=== PATIENT | female | born 2000 | race African-American/Black ===

== ENCOUNTER 2022-12-06 11:28 | Outpatient (CLI) | payer OTHER ==
[2022-12-06 13:25] LABS: ALT 12 U/L (4-34); AST 21 U/L (14-36); African American GFR (CKD) >90 (>60 ml/min/1.73 sqM); Basophils % (A) 0 %; Blood Urea Nitrogen 4 mg/dL (7-17); Eosinophils % (A) 0 %; HCT 30.5 % (34.0-46.0); HGB 10.8 gm/dL (11.4-16.0); LDH 171 U/L (120-246); Lymphocytes # (A) 1.4 k/uL (1.0-4.8); Lymphocytes % (A) 28 %; MCH 32.3 pg (25.0-35.0); MCHC 35.4 g/dL (31.0-37.0); MCV 91.2 fL (80.0-100.0); Mean Platelet Volume 11.6; Monocytes # (A) 0.4 k/uL (0-1.0); Monocytes % (A) 8 %; Neutrophils % (A) 61 %; Non-African American GFR(CKD) >90 (>60 ml/min/1.73 sqM); Platelet Count 168 k/uL (150-450); RBC 3.35 m/uL (3.80-5.40); RDW 12.6 % (11.5-15.5); Uric Acid 4.9 mg/dL (3.7-7.4); WBC 4.9 k/uL (3.8-10.6)
[2022-12-06 13:45] LABS: Appearance,Urine Cloudy (Clear); Bilirubin,Urine Negative (Negative); Blood,Urine Negative (Negative); Color,Urine Yellow; Glucose,Urine (UA) Negative (Negative); Ketones,Urine Negative (Negative); Leukocyte Esterase,Urine Negative (Negative); Mucus,Urine Rare /hpf; Nitrite,Urine Negative (Negative); PH, Urine 6.5 (5.0-8.0); Protein,Urine Trace (Negative); RBC,Urine 1 /hpf (0-5); Specific Gravity,Urine 1.017 (1.001-1.035); Squamous Epithelial Cell,Urine 10 /hpf (0-4); Urobilinogen,Urine <2.0 mg/dL (<2.0); WBC,Urine 1 /hpf (0-5)
[2022-12-06 13:54] LABS: Large Platelets Present; RBC Morphology Normal
[2022-12-06 13:56] LABS: Creatinine,Urine Random 180.2 mg/dL
[2022-12-06 14:53] VITALS: BP 129/86; PULSE 76; RESP 16; TEMP 98.4
== END 2022-12-06 14:20 | disposition home or self-care (01) ==
LOC: FBPOP 11:28
PROVIDERS: ATTEND Obstetrics & Gynecology
DX: O13.3 Gestational [pregnancy-induced] hypertension without significant proteinuria, third trimester (principal); Z3A.36 36 weeks gestation of pregnancy; Z79.899 Other long term (current) drug therapy
CPT/HCPCS: 59025; 81001; 82565; 82570; 83615; 84156; 84450; 84460; 84520; 84550; 85025

== ENCOUNTER 2022-12-11 17:00 | Inpatient (IN) | payer OTHER ==
[2022-12-12] MEDS ORDERED: CARBOPROST TROMETHAMINE 250 MCG/ML 1 ML AMP IM PRN (06:27)
[2022-12-12] MEDS ORDERED: LIDOCAINE 0.5% (PF) 5 MG/ML (50 ML SDV) SQ PRN (06:27)
[2022-12-12] MEDS ORDERED: METHYLERGONOVINE 0.2 MG/ML 1 ML AMP IM PRN (06:27)
[2022-12-12] MEDS ORDERED: miSOPROStoL 200 MCG TAB PO PRN (06:27)
[2022-12-12] MEDS ORDERED: TERBUTALINE 1 MG/ML VIAL SQ PRN (06:27)
[2022-12-12] MEDS ORDERED: OXYTOCIN 10 UNIT/ML 1 ML VIAL IM PRN ×2 (06:27→21:41)
[2022-12-12] MEDS ORDERED: TRANEXAMIC 1,000 MG/100ML-NACL 1,000 MG in EMPTY BAG 1 BAG IV PRN (06:27)
[2022-12-12 06:41] LABS: Basophils % (A) 0 %; Eosinophils % (A) 1 %; HCT 33.5 % (34.0-46.0); HGB 11.6 gm/dL (11.4-16.0); Lymphocytes # (A) 1.5 k/uL (1.0-4.8); Lymphocytes % (A) 32 %; MCH 31.6 pg (25.0-35.0); MCHC 34.5 g/dL (31.0-37.0); MCV 91.5 fL (80.0-100.0); Mean Platelet Volume 12.1; Monocytes # (A) 0.3 k/uL (0-1.0); Monocytes % (A) 7 %; Neutrophils # (A) 2.7 k/uL (1.3-7.7); Neutrophils % (A) 58 %; Platelet Count 176 k/uL (150-450); RBC 3.67 m/uL (3.80-5.40); RDW 12.6 % (11.5-15.5); WBC 4.7 k/uL (3.8-10.6)
[2022-12-12] MEDS: LACTATED RINGERS 1,000 ML IV SCH ×3 (07:14→18:12)
[2022-12-12] MEDS ORDERED: OXYTOCIN 30 UNITS/500 ML NS 30 UNIT in SALINE 1 500ML.BAG IV SCH (07:15)
--- NOTE | 2022-12-12 07:20 | P.HPOB ---
History of Present Illness H&P Date: 12/12/22 Chief Complaint: Medical induction of labor for gestational HTN Ms. Vasquez is a 22 year old at 37 weeks and 3 days with EDC of 12/30/2022 (by LMP consistent with 7 week US) who presents to labor and deliver for medical induction of labor for gestational hypertension. Pre-eclampsia labs were within normal limits on 12/06. The has also been complicated by the finding of a small hydrocele on ultrasound. The fetus measured in the 70%ile at 36 week growth ultrasound. work-up: blood type O positive, antibody negative, rubella immune, VDRL non-reactive, HBsAg negative, HIV negative, HCV Ab negative, gonorrhea negative, chlamydia negative, 1 hour GTT within normal limits, GBS negative. Past Medical History: None Past Surgical History: None Past Medical History Past Medical History: No Reported History History of Any Multi-Drug Resistant Organisms: None Reported Past Surgical History: No Surgical Hx Reported Past Anesthesia/Blood Transfusion Reactions: No Reported Reaction Past Psychological History: No Psychological Hx Reported Smoking Status: Never smoker Past Alcohol Use History: None Reported Past Drug Use History: None Reported Medications and Allergies Home Medications Medication Instructions Recorded Confirmed Type Aspirin 81 mg PO DAILY 12/06/22 12/12/22 History Vit No.179/Iron/Folic 1 tab PO DAILY 12/06/22 12/12/22 History [ Tablet] Allergies Allergy/AdvReac Type Severity Reaction Status Date / Time No Known Allergies Allergy Verified 12/12/22 06:25 Exam Vital Signs Temp Pulse Resp BP Pulse Ox 12/12/22 06:25 97.6 F 94 16 136/95 100 Intake and Output 12/11/22 12/12/22 12/12/22 22:59 06:59 14:59 Other: Weight 74.843 kg This physical exam is performed. This is a healthy-appearing in no apparent distress. Breathing is non-labored. Abdomen is gravid and non-tender. Cervical exam is fingertip, 0% effaced, and -2 station. Cooks catheter is placed with a speculum, each balloon is filled with 60cc of sterile saline. Extremities are non-tender and non-edematous. heart tones are reactive and reassuring on NST. Tocometer is graphing rare contractions. Results Result Diagrams: 12/12/22 06:30 Abnormal Lab Results - Last 24 Hours (Table) 12/12/22 Range/Units 06:30 RBC 3.67 L (3.80-5.40) m/uL Hct 33.5 L (34.0-46.0) % Assessment and Plan Assessment: 22 year old at 37 weeks and 3 days presenting for medical induction of la bor for gestational hypertension Plan: Admit, NPO, mIVF, low-dose pitocin with cooks catheter x10-12 hours. IV nubain or nitrous oxide prn. Continuous external monitoring and tocometer. Time with Patient: Less than 30 (15 minutes)
[2022-12-12] MEDS: NALBUPHINE 10 MG/ML (10 ML MDV) IV PRN ×2 (10:12→16:01)
[2022-12-12] MEDS ORDERED: SODIUM CHLORIDE 0.9% 250 ML BAG ONE (18:10)
[2022-12-12] MEDS ORDERED: ROPIVACAINE 5 MG/ML 30 ML VIAL ONE (18:10)
[2022-12-12] MEDS ORDERED: fentaNYL (PF) 50 MCG/ML 5 ML AMP ONE (18:10)
[2022-12-12] MEDS ORDERED: LACTATED RINGERS 1,000 ML IV ONE (21:41)
[2022-12-12] MEDS ORDERED: CITRIC ACID-SODIUM CITRATE 15 ML CUP PO ONE (22:00)
[2022-12-12] MEDS ORDERED: AZITHROMYCIN 500 MG in SODIUM CHLORIDE 0.9% 250 ML IVPB STA (22:06)
[2022-12-12] MEDS ORDERED: ONDANSETRON 4 MG/2 ML VIAL ONE (22:57)
[2022-12-12] MEDS ORDERED: MORPHINE SULFATE (PF) 0.3 MG/0.3 ML SYR ONE (22:57)
[2022-12-12] MEDS ORDERED: OXYTOCIN 30 UNITS/500 ML NS BAG IV ONE (22:57)
[2022-12-12] MEDS ORDERED: KETOROLAC 15 MG/ML 1 ML VIAL ONE (22:57)
[2022-12-12] MEDS ORDERED: HYDROmorphone 0.5 MG/0.5 ML SYRINGE IVP PRN (23:18)
[2022-12-12] MEDS ORDERED: ONDANSETRON 4 MG/2 ML VIAL IVP PRN (23:18)
[2022-12-12] MEDS ORDERED: NALOXONE 0.4 MG/ML 1 ML VIAL IV PRN (23:18)
[2022-12-12] MEDS ORDERED: diphenhydrAMINE 50 MG/ML 1 ML VIAL IVP PRN (23:18)
--- NOTE | 2022-12-13 | P.OP ---
Date of Procedure: 12/12/22 Preoperative Diagnosis: 1. Term IUP at 37 weeks and 3 days 2. Gestational Hypertension 3. Persistent Category II Heart Tones Remote From Delivery Postoperative Diagnosis: Same Procedure(s) Performed: Primary Lower Transverse Section Implants: None Anesthesia: epidural Surgeon: Krys Kenny Master [employer]ach[employer]ist #1: Kevon Mena Estimated Blood Loss (ml): 400 IV fluids (ml): 600 Urine output (ml): 150 Pathology: none sent Condition: stable Disposition: floor Indications for Procedure: This is a 22 year old at 37 weeks and 3 days who was being medically ind uced for recently diagnosed gestational hypertension. Category II FHT managed following algorithm including initiation of corrective measures of IV fluids and position changes. With the persistent presence of repetitive lates, a patient- centered huddle was held and the need for an expedited deliver was discussed with the patient. It is our clinical recommendation to proceed with the delivery and after questions were answered to the patient agrees to proceed with the recommended plan. The risks, benefits, and alternatives to section were discussed with the patient including risk of bleeding, infection, damage to surrounding structures including bladder/bowels/ureters, and post-operative VTE. The patient understands these risks and desires to proceed with section. Operative Findings: Colorless amniotic fluid. Viable male infant in left occiput transverse presentation. Apgars were 9/9 at 1 and 5 minutes respectively. Weight was 7 pounds and 7 ounces (3370 grams). Normal uterus, bilateral fallopian tubes, and ovaries. Description of Procedure: The patient was taken to the operating room where spinal anesthesia was found to be adequate. 2 grams of Ancef and 500mg of Azithromycin were given for infection prophylaxis. Vaginal prep was performed prior to the surgery. She was prepared and draped in the dorsal supine position with a leftward tilt. A Pfannenstiel skin incision was made with the scalpel. The incision was carried down to the fascia with a bovie. The fascia was incised and extended laterally with Headley scissors. The superior aspect of the fascia was grasped with Titi clamps. The underlying rectus muscle was dissected off sharply with Headley scissors. In a similar fashion, the inferior aspect of the fascia was elevated with Titi clamps and the rectus muscle and pyramidalis were dissected off. Excellent hemostasis was achieved with the bovie. The rectus muscle was in the midline down to the level of the pubic symphysis. Pre-peritoneal fatty tissue was bluntly dissected to expose the peritoneum. The peritoneum was found to be free of adherent bowel and entered sharply with Headley scissors. The peritoneal incision was extended superiorly and inferiorly to the bladder reflection with good visualization of the bladder. The bladder blade was inserted and vesicouterine peritoneum was identified. Intraabdominal survey revealed scant, clear peritoneal fluid and the thinned-out lower uterine segment.The bladder blade was repositioned to keep the bladder out of the operative field. The lower uterine segment was incised with a scalpel. The amniotic sac was ruptured with an Allis clamp and clear fluid was noted. The uterine incision was extended bluntly with lateral and upward traction. The fetus was in left occiput transverse position. The head was elevated out of the pelvis with special attention paid to avoid using the uterine incision as a fulcrum. Gentle fundal pressure was applied once the head was brought into the incision. The infant was delivered with no difficulty. The mouth and nose were suctioned with a bulb. The cord was clamped and cut. was noted to be spontaneously crying. The was handed off to the hunter. IV oxytocin was initiated to facilitate uterine contractions. The placenta was delivered intact with manual massage of uterine fundus. The uterus was then exteriorized and the inside of the uterus was gently wiped with a lap sponge to assure complete removal of placental membranes. The uterine incision was closed with a 0-Polysorb suture in a running locked fashion. A second imbricating layer of 0-Polysorb was placed along the incision. A stable 4 centimeter hematoma at the left aspect of the hysterotomy is noted. The ovaries and tubes were found to be normal. The uterus, tubes, and ovaries were then gently returned to the abdominal cavity. The blood clots and fluid were wiped out of the abdomen and pelvis with moist laparotomy sponges. The pelvis was copiously suction irrigated.The uterine incision was reinspected and excellent hemostasis was noted. The fascial layer was closed with a 0-Vicryl suture. The subcutaneous tissue was reapproximated with 2-0 Plain Gut. The skin was closed with 4-0 Monocryl in a subcuticular fashion. The patient tolerated the procedure well. All the counts were correct times two. The patient was taken to the recovery room in a stable condition.
[2022-12-13] MEDS ORDERED: NALOXONE 0.4 MG/ML 1 ML VIAL IV PRN (00:01)
[2022-12-13] MEDS ORDERED: ZOLPIDEM 5 MG TAB PO PRN (00:01)
[2022-12-13] MEDS ORDERED: MORPHINE PCA 50 MG/50 ML BAG IV PRN (00:01)
[2022-12-13] MEDS ORDERED: METOCLOPRAMIDE 5 MG/ML 2 ML VIAL IVP PRN (00:01)
[2022-12-13] MEDS ORDERED: diphenhydrAMINE 50 MG CAP PO PRN (00:01)
[2022-12-13] MEDS ORDERED: diphenhydrAMINE 50 MG/ML 1 ML VIAL IVP PRN ×2 (00:01)
[2022-12-13] MEDS ORDERED: diphenhydrAMINE 25 MG CAP PO PRN (00:01)
[2022-12-13] MEDS ORDERED: ONDANSETRON 4 MG/2 ML VIAL IVP PRN (00:01)
[2022-12-13] MEDS ORDERED: hydrALAZINE HCL 20 MG/ML 1 ML VIAL IVP STA (00:13)
[2022-12-13] MEDS: ACETAMINOPHEN TAB 500 MG TAB PO SCH ×3 (04:39→18:22)
--- NOTE | 2022-12-13 06:50 | P.PN ---
Progress Note - Text Progress Note Date: 12/13/22 Postoperative day 1 status post section under epidural anesthesia,,and epidural morphine given for postoperative analgesia, patient doing well, there is no anesthesia related complications, Patient had no headache, vital signs stable , Assessment and plan= postop day 1 status post , doing well there is no anesthesia related complication.
--- NOTE | 2022-12-13 08:39 | P.PNOBGPC ---
Subjective - Subjective Principal diagnosis: s/p primary section Interval history: The patient is doing well this morning and had no acute events overnight. She has no complaints this morning. She reports minimal lochia, passing flatus, and eating/drinking without nausea or vomiting. Cottrell catheter will be removed today. Goals for today are ambulation. She is her without difficulty. She denies chest pain, shortness of breathing, fevers, or chills overnight. She denies pain or swelling in the legs. Patient denies headaches, visual disturbances, or RUQ pain. Patient reports: Reports appetite normal, Reports voiding normally, Reports pain well controlled, Reports ambulating normally : doing well, nursing well Objective - Vital Signs Latest vital signs: Vital Signs Temp Pulse Resp BP Pulse Ox 12/13/22 06:00 16 12/13/22 04:30 98.4 F 98 16 124/84 98 12/13/22 04:00 16 12/13/22 02:19 16 12/13/22 01:53 98.2 F 89 16 141/87 98 12/13/22 01:23 91 16 158/83 100 12/13/22 00:53 99 16 148/89 100 12/13/22 00:38 93 16 150/94 100 12/13/22 00:36 93 150/94 12/13/22 00:31 89 16 140/87 100 12/13/22 00:23 81 16 173/85 100 12/13/22 00:19 16 100 12/13/22 00:08 82 16 167/82 100 12/12/22 23:53 98.0 F 85 16 160/96 100 12/12/22 23:19 98.0 F 85 17 160/96 100 Intake and Output 12/12/22 12/13/22 12/13/22 22:59 06:59 14:59 Intake Total 3000 633.033 Output Total 300 870 Balance 2700 -236.967 Intake: IV 3000 600 Intake, IV Titration 33.033 Amount Oxytocin 30 Units/500 ml 33.033 Ns 30 unit In Saline 1 500ml.bag @ Per Protocol IV .Q0M [facility] Rx#:[id number] Output: Urine 300 450 Estimated Blood Loss 400 Output, Quantitative 20 Blood Loss Other: Voiding Method Indwelling Catheter - Exam Extremities: Present: normal Abdomen: Present: normal appearance, soft Incision: Present: normal, dressed Uterus: Present: normal, firm Assessment and Plan Assessment: 22 year old now POD#1 s/p primary section secondary to persiste nt category II heart tones remote from delivery Plan: 1. Postoperative. Patient doing well, meeting all postoperative milestones appropriately. 2. Viable male infant at bedside. Will plan for circumcision tomorrow. Dispo: Anticipate discharge home tomorrow.
[2022-12-13] MEDS: KETOROLAC 15 MG/ML 1 ML VIAL IVP PRN ×3 (09:04→20:39)
[2022-12-13] MEDS: SENNOSIDES-DOCUSATE SODIUM 1 EACH TAB PO SCH ×2 (10:22→20:41)
[2022-12-14] MEDS: ACETAMINOPHEN TAB 500 MG TAB PO SCH ×4 (00:15→23:27)
[2022-12-14] MEDS: LACTATED RINGERS 1,000 ML IV SCH ×2 (01:22→01:23)
[2022-12-14] MEDS ORDERED: IBUPROFEN 800 MG TAB PO PRN (02:19)
[2022-12-14] MEDS: IBUPROFEN 600 MG TAB PO PRN ×3 (03:00→18:01)
[2022-12-14 07:48] LABS: Basophils % (A) 0 %; Eosinophils # (A) 0.1 k/uL (0-0.7); Eosinophils % (A) 1 %; HCT 28.8 % (34.0-46.0); Lymphocytes # (A) 1.7 k/uL (1.0-4.8); Lymphocytes % (A) 18 %; MCH 31.8 pg (25.0-35.0); MCHC 34.6 g/dL (31.0-37.0); Mean Platelet Volume 11.2; Monocytes # (A) 0.6 k/uL (0-1.0); Monocytes % (A) 7 %; Neutrophils % (A) 72 %; Platelet Count 166 k/uL (150-450); RBC 3.13 m/uL (3.80-5.40); WBC 9.7 k/uL (3.8-10.6)
[2022-12-14 07:53] LABS: HGB 9.9 gm/dL (11.4-16.0)
--- NOTE | 2022-12-14 08:36 | P.PNOBGPC ---
Subjective - Subjective Principal diagnosis: s/p primary section Interval history: The patient is doing well this morning and had no acute events overnight. She has no complaints this morning. She reports minimal lochia, passing flatus, voiding without difficulty, ambulating, and eating/drinking without nausea or vomiting. She is her without difficulty. She denies chest pain, shortness of breathing, fevers, or chills overnight. She denies pain or swelling in the legs. Patient reports: Reports appetite normal, Reports voiding normally, Reports pain well controlled, Reports ambulating normally [place]: doing well Objective - Vital Signs Latest vital signs: Vital Signs Temp Pulse Resp BP Pulse Ox 12/14/22 08:00 98.1 F 77 14 137/92 12/14/22 00:00 98.3 F 66 16 126/66 98 12/13/22 20:00 97.9 F 89 16 126/85 99 12/13/22 18:00 16 12/13/22 16:00 97.9 F 98 16 123/81 97 12/13/22 15:50 16 12/13/22 14:00 16 12/13/22 12:00 98.1 F 76 16 129/77 97 12/13/22 10:00 16 Intake and Output 12/13/22 12/14/22 12/14/22 22:59 06:59 14:59 Intake Total 720 240 Output Total 200 800 Balance 520 -560 Intake: IV 480 Oral 240 240 Output: Urine 200 800 Other: Voiding Method Toilet # Voids 1 2 - Exam Extremities: Present: normal Abdomen: Present: normal appearance, soft Incision: Present: normal, dry, intact Uterus: Present: normal, firm - Labs Labs: Abnormal Lab Results - Last 24 Hours (Table) 12/14/22 Range/Units 07:10 RBC 3.13 L (3.80-5.40) m/uL Hgb 9.9 L D (11.4-16.0) gm/dL Hct 28.8 L (34.0-46.0) % Assessment and Plan Assessment: 22 year old now POD#2 s/p primary section secondary to persistent category II heart tones remote from delivery Plan: 1. Postoperative. Patient doing well, meeting all postoperative milestones appropriately. 2. Acute Blood Loss Anemia. VSS, patient asymptomatic. 3. Viable male at bedside. Will plan for circumcision tomorrow. Dispo: Anticipate discharge home tomorrow.
[2022-12-14] MEDS ORDERED: medroxyPROGESTERone 150 MG/ML 1ML VIAL IM ONE (08:37)
[2022-12-14] MEDS: SENNOSIDES-DOCUSATE SODIUM 1 EACH TAB PO SCH ×2 (09:44→22:50)
[2022-12-14] MEDS ORDERED: LABETALOL 100 MG TAB PO STA (17:14)
[2022-12-15] MEDS: IBUPROFEN 600 MG TAB PO PRN ×2 (01:26→08:45)
[2022-12-15] MEDS: ACETAMINOPHEN TAB 500 MG TAB PO SCH ×3 (05:47→13:32)
[2022-12-15] MEDS: LACTATED RINGERS 1,000 ML IV SCH (07:33)
--- NOTE | 2022-12-15 08:40 | P.DS ---
Providers Date of admission: 12/12/22 06:09 Expected date of discharge: 12/15/22 Attending physician: Krys Kenny MD Primary care physician: Stated None Hospital Course: This is a 22 year old now POD#3 status post primary section for persistent category II heart tones remote from delivery. was complicated by gestational hypertension. The patient is doing well this morning and had no acute events overnight. She has no complaints this morning. She reports minimal lochia, passing flatus, voiding without difficulty, ambulating, and eating/drinking without nausea or vomiting. doing well at bedside, s/p circumcision. She denies chest pain, shortness of breathing, fevers, or chills overnight. She denies pain or swelling in the legs. Postoperative restrictions are reviewed with the patient including pelvic rest for 6 weeks, no lifting heavier than 15 pounds for 6 weeks. The patient is encouraged to call the office if she experiences any heavy bleeding, foul-smelling discharge, breast complaints, or any if she has any other concerns. She will follow up in the office with in 1 week for a blood pressure check. She will go home with Motrin, Tylenol, and Oxycodone (18 tablets) for breakthrough pain. All questions are answered. Assessment: 22 year old now POD#3 s/p primary Patient Condition at Discharge: Good Plan - Discharge Summary New Discharge Prescriptions: New Labetalol HCl 100 mg PO BID #60 tablet polyethylene glycoL 3350 [Miralax] 17 gm PO DAILY PRN #527 gm PRN Reason: Constipation Acetaminophen Tab [Tylenol] 650 mg PO Q6H PRN #30 tab PRN Reason: Mild Pain (Scale 1 To 3) Ibuprofen [Motrin] 600 mg PO Q6HR PRN #30 tab PRN Reason: Mild Pain (Scale 1 To 3) oxyCODONE HCL [Roxicodone] 5 mg PO Q6HR PRN 3 Days #12 tab PRN Reason: Breakthrough Pain No Action Aspirin 81 mg PO DAILY Vit No.179/Iron/Folic [ Tablet] 1 tab PO DAILY Discharge Medication List Aspirin 81 mg PO DAILY 12/06/22 [History] Vit No.179/Iron/Folic [ Tablet] 1 tab PO DAILY 12/06/22 [History] Acetaminophen Tab [Tylenol] 650 mg PO Q6H PRN #30 tab 12/15/22 [Rx] Ibuprofen [Motrin] 600 mg PO Q6HR PRN #30 tab 12/15/22 [Rx] Labetalol HCl 100 mg PO BID #60 tablet 12/15/22 [Rx] oxyCODONE HCL [Roxicodone] 5 mg PO Q6HR PRN 3 Days #12 tab 12/15/22 [Rx] polyethylene glycoL 3350 [Miralax] 17 gm PO DAILY PRN #527 gm 12/15/22 [Rx] Follow up Appointment(s)/Referral(s): Krys Kenny MD [STAFF PHYSICIAN] - 1 Week (blood pressure check) Activity/Diet/Wound Care/Special Instructions: Instructions 1. Do not begin any exercise program for 3 weeks. 2. Do not resume sexual relations for 6 weeks or longer if uncomfortable. 3. You may take tub baths or showers at any time. 4. You may use tampons if desired after 6 weeks. 5. Keep any areas repaired with stitches clean and dry. 6. If you are not nursing, wear a good fitting, supportive bra during the day and limit fluid intake for at least 1 week to prevent breast engorgement. 7. Call the office, , within the next week to make appointment for your 6 week checkup if it has not already been made. 8. Report any of the following occurrences to the doctor promptly: a. Heavy, excessive bleeding b. Chills, fever c. Burning or frequency of urination d. Pain or redness and breasts if nursing e. Increasing pain or swelling of vulva (stitches). In addition to the above instructions, the following additional should be followed: 1. No heavy lifting or straining (exercising) until after 6 week checkup. 2. Keep abdominal incision clean and dry: You may wear a dressing if more comfortable. 3. Make office appointment for 2 weeks after delivery date. Discharge Disposition: HOME SELF-CARE
[2022-12-15] MEDS: SENNOSIDES-DOCUSATE SODIUM 1 EACH TAB PO SCH (08:53)
[2022-12-15] MEDS ORDERED: LABETALOL 100 MG TAB PO SCH (09:00)
[2022-12-15 11:11] VITALS: BP 136/82; PULSE 100; RESP 16; TEMP 99.1
== END 2022-12-15 13:50 | disposition home or self-care (01) | DRG 787 ==
LOC: 4FBP 12-12 06:09
PROVIDERS: ADMIT Obstetrics & Gynecology; ATTEND Obstetrics & Gynecology
PROC: 0U7C7ZZ Dilation of Cervix, Via Natural or Artificial Opening (ICD-10-PCS; principal; 2022-12-12 06:15)
PROC: 3E033VJ Introduction of Other Hormone into Peripheral Vein, Percutaneous Approach (ICD-10-PCS; principal; 2022-12-12 06:15)
PROC: 10D00Z1 Extraction of Products of Conception, Low, Open Approach (ICD-10-PCS; principal; 2022-12-12 06:15)
DX: O13.4 Gestational [pregnancy-induced] hypertension without significant proteinuria, complicating childbirth (principal); D62 Acute posthemorrhagic anemia; O35.8XX0 Maternal care for other (suspected) fetal abnormality and damage, not applicable or unspecified; O99.02 Anemia complicating childbirth; O76 Abnormality in fetal heart rate and rhythm complicating labor and delivery; O32.2XX0 Maternal care for transverse and oblique lie, not applicable or unspecified; Z28.310 Unvaccinated for COVID-19; Z3A.37 37 weeks gestation of pregnancy; Z37.0 Single live birth; Z79.82 Long term (current) use of aspirin
CPT/HCPCS: 85025; 86850; 86900; 86901